=== PATIENT | female | born 1945 | race Hispanic/Latino ===

== ENCOUNTER 2016-10-26 08:31 | Outpatient (CLI) | payer MEDICARE, OTHER ==
--- NOTE | 2016-10-26 16:03 | Mammography Report ---
BILATERAL DIGITAL SCREENING MAMMOGRAM with CAD: 10/26/16 08:31:00 CLINICAL: Routine screening. COMPARISON:10/21/15 FINDINGS: The breasts are predominant fatty with bilateral residual retroareolar fibroglandular densities. No mass, architectural distortion or suspicious calcifications. IMPRESSION: No mammographic evidence of malignancy. BI-RADS CATEGORY: 2 -- Benign RECOMMENDATION: Routine mammographic screening in one year. COMMENT: Patient follow-up letters are generated by our [employer] application.
== END 2016-10-26 08:32 | disposition home or self-care (01) ==
LOC: SPVWC 08:31
PROVIDERS: ATTEND Internal Medicine
DX: Z12.31 Encounter for screening mammogram for malignant neoplasm of breast (principal)
CPT/HCPCS: 77067; G0202

== ENCOUNTER → 2017-10-18 | Outpatient (CLI) | payer MEDICARE, OTHER | LOC: SLR 11:00 | PROVIDERS: ATTEND Otolaryngology | DX: G47.30 Sleep apnea, unspecified (principal) | CPT/HCPCS: 95810 ==

== ENCOUNTER 2017-10-27 08:25 | Outpatient (CLI) | payer MEDICARE, OTHER ==
--- NOTE | 2017-10-27 12:54 | Mammography Report ---
BILATERAL DIGITAL SCREENING MAMMOGRAM with CAD : 10/27/17 08:25:00 CLINICAL: Routine screening. COMPARISON:10/26/16 FINDINGS: The breasts are mostly fatty with bilateral residual heterogeneously dense retroareolar fibroglandular densities.A few scattered lateral benign calcifications. No mass, architectural distortion or suspicious calcifications. IMPRESSION: No mammographic evidence of malignancy. BI-RADS CATEGORY: 2 -- Benign RECOMMENDATION: Routine mammographic screening in one year. COMMENT: Patient follow-up letters are generated by our [employer] application.
== END 2017-10-27 08:26 | disposition home or self-care (01) ==
LOC: SPVWC 08:25
PROVIDERS: ATTEND Internal Medicine
DX: Z12.31 Encounter for screening mammogram for malignant neoplasm of breast (principal)
CPT/HCPCS: 77067

== ENCOUNTER 2018-10-29 09:10 | Outpatient (CLI) | payer MEDICARE, OTHER ==
--- NOTE | 2018-10-29 13:08 | Mammography Report ---
BILATERAL DIGITAL SCREENING MAMMOGRAM with CAD: 10/29/18 09:10:00 CLINICAL: Routine screening. COMPARISON:10/27/17 FINDINGS: The breasts are mostly fatty with stable bilateral residual retroareolar heterogeneously dense fibroglandular densities. Bilateral benign ossifications. No mass, architectural distortion or suspicious calcifications. IMPRESSION: No mammographic evidence of malignancy. BI-RADS CATEGORY: 2 -- Benign RECOMMENDATION: Routine mammographic screening in one year. COMMENT: Patient follow-up letters are generated by our [employer] application.
== END 2018-10-29 09:11 | disposition home or self-care (01) ==
LOC: SPVWC 09:10
PROVIDERS: ATTEND Internal Medicine
DX: Z12.31 Encounter for screening mammogram for malignant neoplasm of breast (principal); E03.9 Hypothyroidism, unspecified; E78.5 Hyperlipidemia, unspecified
CPT/HCPCS: 77067

== ENCOUNTER 2020-11-02 10:26 | Outpatient (CLI) | payer MEDICARE, OTHER ==
--- NOTE | 2020-11-02 14:20 | Mammography Report ---
DIGITAL SCREENING MAMMOGRAM WITH CAD, 11/02/2020 INDICATION: Routine screening mammography. TECHNIQUE: Digital bilateral 2D mammography was obtained in the craniocaudal and mediolateral obliq ue projections. This examination was interpreted with the benefit of Computer-Aided Detection analysi s. COMPARISON: 10/31/2019 FINDINGS: Breast Density: There are scattered areas of fibroglandular density. There is no evidence of dominant mass, suspicious calcifications or architectural distortion in eithe r breast. Both breasts contain benign calcification. IMPRESSION: Follow up recommendation: Routine yearly BI-RADS Category 1: Negative. A "normal" or negative report should not discourage follow up or biopsy of a clinically significant f inding. A written summary of these findings will be mailed to the patient. The patient will be entered into a mammography reporting system which will generate a reminder letter for the patient's next appointmen t at the appropriate interval. The [employer] recommends yearly mammograms starting at age 40 and continuing as l anatoly as a woman is in good health. Breast MRI is recommended for women with an approximate 20-25% or greater lifetime risk of breast cancer, including women with a strong family history of breast or ova tomi cancer or who have been treated for Hodgkin's disease. Signer Name: Ja Ramirez MD Signed: 11/02/2020 2:15 PM Workstation Name: [id number]
== END 2020-11-02 10:27 | disposition home or self-care (01) ==
LOC: SPVWC 10:26
PROVIDERS: ATTEND Internal Medicine
DX: Z12.31 Encounter for screening mammogram for malignant neoplasm of breast (principal)
CPT/HCPCS: 77067

== ENCOUNTER 2021-04-09 07:26 | Emergency (ER) | payer MEDICARE, OTHER ==
[2021-04-09 07:46] VITALS: BP 192/63
--- NOTE | 2021-04-09 08:34 | Emergency Department Report ---
ED Rash HPI - HPI Chief Complaint: Skin Rash Stated Complaint: POSS BED BUGS Time Seen by Provider: 04/09/21 08:29 Duration: 3 Days Location: Upper Extremities Rash Symptoms: Yes Itching, No Facial Swelling, No Tongue/Oral Swelling, No Breathing Difficulties, No Choking Sensation, No Wheezing/Dyspnea, No Peeling, No Blistering, No Fever, No Lightheaded, No Malaise, No Myalgias Other History: 75-year-old female presents to the emergency room for rash to her left forearm and a few spots on her right forearm and leg. Patient states that the rash in her arm itches. She does admit to working in the yard. She thought it was bedbugs but has not seen any bugs. Patient denies any fever chills no nausea no vomiting. ED Review of Systems ROS: Stated complaint: POSS BED BUGS Other details as noted in HPI Comment: All other systems reviewed and negative ED Past Medical Hx - Past Medical History Previous Medical History?: Yes Additional medical history: hypothyroidism A-FIB - Surgical History Additional Surgical History: hysterectomy, deviated septum, D&C - Social History Smoking Status: Never Smoker Substance Use Type: None - Medications Home Medications: Home Medications Medication Instructions Recorded Confirmed Last Taken Type Apixaban [Eliquis] 5 mg PO Q12HR #60 tablet 11/11/15 Unknown Rx AtorvaSTATin 10 mg PO DAILY #30 tablet 11/11/15 Unknown Rx Fenofibric Acid (Choline) 135 mg PO QDAY #30 capsule. 11/11/15 Unknown Rx [Trilipix] Metoprolol Xl [Metoprolol 100 mg PO QDAY #30 tablet 11/11/15 Unknown Rx SUCCINATE ER TAB] Thyroid,Pork [[place] Thyroid] 120 mg PO DAILY #30 tablet 11/11/15 Unknown Rx Triamcinolone 0.1% [Kenalog 0.1% 1 applic TP TID #1 tube 04/09/21 Unknown Rx CREAM] cephALEXin [Keflex] 500 mg PO Q12HR 7 Days #14 cap 04/09/21 Unknown Rx Rash Exam - Exam General: Vital signs noted. No distress. Alert and acting appropriately. HEENT: No Periorbital Edema, No Conjuctival Injection, No Chemosis, No Perioral Edema, No Tongue Edema, No Uvular Edema, No Compromised Airway, No Drooling Lungs: Yes Good Air Exchange (Normal Breath Sounds), No Wheezes, No Ronchi, No Stridor, No Cough, No Labored Respirations, No Retractions, No Use of Accessory Muscles, No Other Abnormal Lung Sounds Skin: Yes Morbilliform rash, Yes Erythema, Yes Edema Other: Positive: Abdomen Normal, Neurologic Normal, Musculoskeletal Normal ED Course Vital Signs 04/09/21 04/09/21 07:43 07:45 Temperature 98.2 F Pulse Rate 62 Respiratory 18 Rate Blood Pressure 192/63 O2 Sat by Pulse 99 Oximetry ED Medical Decision Making - Medical Decision Making 75-year-old female presents to the emergency room for rash to her left forearm and a few spots on her right forearm and leg. Patient states that the rash in her arm itches. She does admit to working in the yard. She thought it was bedbugs but has not seen any bugs. Patient denies any fever chills no nausea no vomiting. Patient will be treated for contact dermatitis with triamcinolone cream with a possible superimposed infection patient be placed on Keflex for 7 days. Patient to take Tylenol ibuprofen as needed for pain. Critical care attestation.: If time is entered above; I have spent that time in minutes in the direct care of this critically ill patient, excluding procedure time. ED Disposition Clinical Impression: Contact dermatitis Qualifiers: Contact dermatitis type: unspecified Contact dermatitis trigger: unspecified trigger Qualified Code(s): L25.9 - Unspecified contact dermatitis, unspecified cause Disposition: DC-01 TO HOME OR SELFCARE Is pt being admited?: No Does the pt Need Aspirin: No Condition: Stable Instructions: Contact Dermatitis, [id number] Additional Instructions: Please complete antibiotics as prescribed. Use your cream 3 times a day. Follow-up with your primary care provider if symptoms persist or gets worse. Prescriptions: cephALEXin [Keflex] 500 mg PO Q12HR 7 Days #14 cap Triamcinolone 0.1% [Kenalog 0.1% CREAM] 1 applic TP TID #1 tube Referrals: Your, primary care provider [Other] - 3-5 Days Forms: Work/School Release Form(ED)
== END 2021-04-09 08:58 | disposition home or self-care (01) ==
LOC: ED 07:26
DX: L25.9 Unspecified contact dermatitis, unspecified cause (principal); Z90.710 Acquired absence of both cervix and uterus; Z98.890 Other specified postprocedural states; Z79.899 Other long term (current) drug therapy
CPT/HCPCS: 99282

== ENCOUNTER 2021-11-03 10:07 | Outpatient (CLI) | payer MEDICARE, OTHER ==
--- NOTE | 2021-11-04 13:38 | Mammography Report ---
DIGITAL SCREENING MAMMOGRAM WITH CAD, 11/03/2021 CLINICAL INFORMATION / INDICATION: Routine screening mammography. SCREENING MAMMO Z12.31 TECHNIQUE: Digital bilateral 2D mammography was obtained in the craniocaudal and mediolateral obliqu e projections. This examination was interpreted with the benefit of Computer-Aided Detection analysis . COMPARISON: 10/21/2014 through 11/02/2020. FINDINGS: Breast Density: There are scattered areas of fibroglandular density. No dominant mass, suspicious calcifications, or architectural distortion in either breast. There are benign secretory calcifications bilaterally. IMPRESSION: No mammographic evidence of malignancy. Follow up recommendation: Routine yearly BI-RADS Category 2: BENIGN. A "normal" or negative report should not discourage follow up or biopsy of a clinically significant f inding. A written summary of these findings will be mailed to the patient. The patient will be entered into a mammography reporting system which will generate a reminder letter for the patient's next appointmen t at the appropriate interval. The [employer] recommends yearly mammograms starting at age 40 and continuing as l anatoly as a woman is in good health. Breast MRI is recommended for women with an approximate 20-25% or greater lifetime risk of breast cancer, including women with a strong family history of breast or ova tomi cancer or who have been treated for Hodgkin's disease. Signer Name: James Jarvis MD Signed: 11/04/2021 1:34 PM Workstation Name: [id number]
== END 2021-11-03 10:08 | disposition home or self-care (01) ==
LOC: SPVWC 10:07
PROVIDERS: ATTEND Internal Medicine
DX: Z12.31 Encounter for screening mammogram for malignant neoplasm of breast (principal)
CPT/HCPCS: 77067